=== PATIENT | male | born 2000 | race Caucasian/White ===

== ENCOUNTER 2019-10-31 10:46 | Emergency (ER) | payer OTHER, SELFPAY ==
[2019-10-31] VITALS (7 sets, daily range): BP systolic 140–165; BP diastolic 70–88; PULSE 63–100; RESP 14–26; TEMP 36.7; O2SAT 97–100
--- NOTE | ~2019-10-31 | XR_ITS ---
XR chest 2V DATE: 10/31/2019 11:04 INDICATION: Midsternal chest pain intermittent for 2 weeks TECHNIQUE: PA and lateral views COMPARISON: None FINDINGS: Normal heart size. No hilar or mediastinal enlargement. No pulmonary infiltrate or consolid ation, pleural effusion or pulmonary vascular congestion or pneumothorax. IMPRESSION: Negative chest Reviewed, dictated and finalized at location A. IMPRESSION: Negative chest
--- NOTE | 2019-10-31 10:51 | ECG_ITS ---
Measurements Intervals [place]ole Rate: 96 P: 23 MI: 138 QRS: 21 QRSD: 94 T: 25 QT: 357 QTc: 452 Interpretive Statements SINUS RHYTHM BASELINE ARTIFACT- III, V3 NORMAL ECG Electronically Signed On 10-31-2019 14:08:11 CDT by Jerzy Goddard D.O.
--- NOTE | 2019-10-31 10:59 | PC.NURSE ---
Pt to XRAY via stretcher.
[2019-10-31 11:02] LABS: Basophils Absolute Auto 0.1 K/mm3 (0.0-0.1); Basophils Percent Auto 0.9 % (0.2-1.2); Eosinophils Absolute Auto 0.3 K/mm3 (0-0.3); Eosinophils Percent Auto 3.2 % (0-4.4); Hematocrit 44.9 % (42.0-52.0); Hemoglobin 14.7 g/dL (14.0-18.0); Immature Granulocyte Absolute 0.07 K/mm3 (0.00-0.031); Immature Granulocyte Percent A 0.9 % (0-0.5); Lymphocytes Absolute Auto 2.07 K/mm3 (0.9-3.2); Lymphocytes Percent Auto 26.8 % (18.3-44.2); Mean Corpuscular HGB Conc 32.7 g/dl (32-36); Mean Corpuscular Hemoglobin 27.1 pg (26-34); Mean Corpuscular Volume 82.8 fl (80-100); Mean Platelet Volume 9.7 fl (7.4-10.4); Monocytes Absolute Auto 0.8 K/mm3 (0.1-0.6); Monocytes Percent Auto 10.9 % (2.6-8.5); Neutrophils Absolute Auto 4.4 K/mm3 (1.3-6.7); Neutrophils Percent Auto 57.3 % (45.5-73.1); Platelet Count Result 389 k/mm3 (150-375); Red Blood Count 5.42 M/mm3 (4.6-6.20); Red Cell Distribution Width 12.5 % (11.5-14.5); White Blood Count 7.7 K/mm3 (4.5-10.0)
[2019-10-31 11:13] LABS: Prothrombin Time 12.8 Seconds (11.1-14.7)
[2019-10-31] MEDS: ASPIRIN 81 MG CHEWABLE TABLET 324 MG PO (11:13)
[2019-10-31 11:14] LABS: Anion Gap 7 mmol/L (8-16); Blood Urea Nitrogen 10 mg/dL (9-20); Calcium 9.2 mg/dL (8.4-10.2); Carbon Dioxide 26 mmol/L (22-30); Chloride 107 mmol/L (98-107); Estimated CRCL calculation 153 ml/min; Estimated Glomerular Filt Rate > 60; Glucose 98 mg/dL (75-110); Partial Thromboplastin Time 27.2 SECONDS (22.3-36.8); Potassium 4.1 mmol/L (3.4-5.0); Sodium 140 mmol/L (137-145)
[2019-10-31 11:26] LABS: Troponin I < 0.012 ng/mL (0.000-0.034)
[2019-10-31 11:38] LABS: D Dimer 0.27 ug/mL (<0.48)
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
[2019-10-31] MEDS: KETOROLAC 30 MG/ML VIAL (*BKC) IV PUSH (11:44)
[2019-10-31 14:17] LABS: Troponin I < 0.012 ng/mL (0.000-0.034)
== END 2019-10-31 14:38 | disposition home or self-care (01) ==
PROVIDERS: Emergency Medicine Emergency Medical Services; Emergency Provider Emergency Medicine
DX: R07.9 Chest pain, unspecified (principal)
CPT/HCPCS: 36415; 71046; 80048; 84484; 85025; 85380; 85610; 85730; 93005; 96374; 99284; A9270; J1885

== ENCOUNTER 2023-08-11 16:22 | Emergency (ER) | payer OTHER, SELFPAY ==
--- NOTE | ~2023-08-11 | CT_ITS ---
EXAMINATION: CT facial bones wo con DATE: 08/11/2023 17:29 INDICATION: Head injury. TECHNIQUE: Computed tomography (CT) of the facial bones and maxillofacial region was performed withou t intravenous contrast. Automated exposure control and iterative reconstruction technique were employ ed. The dose-length product was 701.99 mGy-cm. COMPARISON: None. FINDINGS: The orbits are normal. There is leftward deviation of the nasal septum. No fracture. IMPRESSION: 1. No fracture. Reviewed, dictated and finalized at location E. IMPRESSION: 1. No fracture.
--- NOTE | ~2023-08-11 | CT_ITS ---
EXAMINATION: CT brain wo con DATE: 08/11/2023 17:29 INDICATION: Head injury. TECHNIQUE: Computed tomography (CT) of the head was performed without intravenous contrast. The mA wa s adjusted according to patient size. Iterative reconstruction technique was employed. The dose-lengt h product was 605.33 mGy-cm. COMPARISON: Head CT 11/11/2017 FINDINGS: There is no intracranial hemorrhage, acute infarction, or abnormal intracranial mass lesion . The ventricles are normal in size. The paranasal sinuses are clear. The mastoid air cells are parish l. IMPRESSION: 1. Normal brain. Reviewed, dictated and finalized at location E. IMPRESSION: 1. Normal brain.
--- NOTE | ~2023-08-11 | XR_ITS ---
EXAMINATION: XR knee RT 3V DATE: 08/11/2023 17:34 INDICATION: Right knee injury. TECHNIQUE: 3 views of right knee were obtained. COMPARISON: None. FINDINGS: Bone alignment is normal. No fracture. Joint spaces are normal. There is a small knee joint effusion. IMPRESSION: 1. Small right knee joint effusion. Reviewed, dictated and finalized at location E.
[2023-08-11 16:27] VITALS: BP 139/105; PULSE 95; RESP 16; TEMP 36.8; O2SAT 97
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
[2023-08-11 18:35] VITALS: BP 140/98; PULSE 80; RESP 20; O2SAT 98
== END 2023-08-11 18:36 | disposition home or self-care (01) ==
PROVIDERS: Emergency Provider Emergency Medicine; PCP Physician Assistant
DX: S00.211A Abrasion of right eyelid and periocular area, initial encounter (principal); S50.811A Abrasion of right forearm, initial encounter; S80.211A Abrasion, right knee, initial encounter; S30.811A Abrasion of abdominal wall, initial encounter; V86.06XA Driver of dirt bike or motor/cross bike injured in traffic accident, initial encounter
CPT/HCPCS: 70450; 70486; 73562; 99284

== ENCOUNTER 2023-08-16 10:33 | Outpatient (CLI) | payer OTHER, SELFPAY ==
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
== END 2023-08-16 10:34 ==
PROVIDERS: PCP Physician Assistant; Visit Provider Orthopaedic Surgery
DX: S89.91XA Unspecified injury of right lower leg, initial encounter (principal); X58.XXXA Exposure to other specified factors, initial encounter
CPT/HCPCS: 73721

== ENCOUNTER 2024-01-31 02:46 | Day surgery (SDC) | payer OTHER, SELFPAY ==
[2024-01-23 15:31] VITALS: BMI 44.3
--- NOTE | 2024-01-23 15:38 | PC.NURSE ---
Report to the Outpatient Waiting Room, entrance under the green pavilion located off [facility], at time _0600_ on date _[id number]_. Planned Procedure Time: _0730_.? Time changes happen often and if your time is changed the preop area will call you the afternoon before. - You and your visitor will be asked to self-screen and do not enter if you have any COVID symptoms. Please call surgeon if you need to reschedule. - A mask is optional within the hospital at this time. Patients may have clear liquids (water, carbonated beverages, clear teas, apple juice) until 3 hours prior to surgery with a maximum of 20 ounces. - No food from midnight until time of surgery and no smoking. This includes no chewing gum, candy or mints. Take only the following medications with a SIP of water on the morning of surgery: ____Inhaler if needed. DO NOT STOP ANY OF YOUR OTHER PRESCRIPTION MEDICATIONS PRIOR TO SURGERY EXCEPT THE FOLLOWING Medications to discontinue per physician ___None____ Please no make-up, nail icelandic, hairspray, perfume, deodorant, or body powder the day of surgery.? No jewelry (including any body piercings) or valuables the day of surgery, leave them at home.? Please take a shower or bath the night before, or the morning of, surgery with an antibacterial soap.? Wear comfortable, loose fitting clothing.? . - Jewelry must be removed prior to entering the operating room.? Rings and piercings that are not removed may be cut off. - The hospital will not accept responsibility for valuables.? - Please leave all valuables, including medications, at home the day of surgery. If you are going home after surgery, a licensed driver engineer must drive you home.? - NO public transportation without another adult if you receive anesthesia. - We recommend that an adult stay with you for 24 hours following discharge. - We also recommend that you do not drive, make important decision, drink alcoholic beverages, or take any drugs that were not prescribed by your health care provider for at least 24 hours after your discharge time. Follow any additional instructions given to you from your surgeon. Telephone instructions given to _Ramana_and asked if any additional questions and then verbalized understanding. Patient advised to call surgeon office or pre surgery nurse liaison [phone] if any additional questions.
[2024-01-31] VITALS (9 sets, daily range): BP systolic 126–154; BP diastolic 74–92; PULSE 69–93; RESP 12–18; TEMP 36.6; O2SAT 95–99
[2024-01-31] MEDS: ACETAMINOPHEN 500 MG TABLET 1000 MG PO (06:21)
[2024-01-31] MEDS: CELECOXIB 200 MG CAPSULE PO (06:21)
[2024-01-31] MEDS: LACTATED RINGERS 1,000 ML 30 ML IV CONT ×2 (06:53→10:25)
--- NOTE | 2024-01-31 07:21 | WPDHPUPDATE1 ---
History and Physical Update Update Date/Time: 01/31/24 07:21 History and Physical has been reviewed, including an updated exam of the patient. There are NO changes in the patient's condition. Risks, benefits, and alternatives have been discussed and questions answered. Patient agrees to proceed with procedure.
--- NOTE | 2024-01-31 07:24 | WPDANESEPPF ---
Anes - Initial Pre Proc Eval Procedure: Operation Date: 01/31/24 07:30 Proposed Procedures p Right Knee Arthroscopy, Anterior Cruciate Ligament Reconstruction - Carlyle Hurley MD Date/Time: 01/31/24 07:24 Surgeon: Carlyle Hurley MD Pre Op Diagnosis: lateral meniscus tear, ACL rupture right knee Patient Data Age: 23 Gender: M Height: 1.85 m Weight: 151.5 kg Last Vital Signs Temp 98 F 01/31/24 06:33 Pulse 83 01/31/24 06:33 Resp 18 01/31/24 06:33 BP 143/75 H 01/31/24 06:33 Pulse Ox 97 01/31/24 06:33 Allergies Allergy/AdvReac Type Severity Reaction Status Date / Time No Known Allergies Allergy Mild Verified 01/31/24 06:14 Home Medications ?Medication ?Instructions ?Recorded ?Confirmed ?Type chlorhexidine gluconate 4 % 1 applic topical ONCE #237 mL 01/13/24 01/31/24 Rx topical liquid (Hibiclens) albuterol sulfate 90 mcg/actuation 1 puff inhalation Q4H PRN 01/23/24 01/23/24 History aerosol inhaler shortness of breath or wheezing Patient hx anesthesia problems: none Family hx anesthesia problems: none Results Review: All pre-operative results and documents have been reviewed as part of the pre-operative evaluation. FOR[facility]LY [facility], [facility] Past Medical History Medical History Rupture of anterior cruciate ligament of right knee Surgical History Surgical History History of ankle surgery growth plate Family History Family History Unknown Hypertension COPD (chronic obstructive pulmonary disease) Heart disease Lung disease Arthritis Cerebrovascular accident High cholesterol Social History Social History Social History: caffeine use-coffee Smoking status: Never smoker Smokeless tobacco user: chewing tobacco Alcohol intake: current Drinks per week: 12 Substance use type: marijuana Occupation/Education: occupation 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 Informed Consent: The patient's anesthetic plan and its attendant risks and benefits were discussed with the patient/family/POA. Questions were solicited and answers provided to the satisfaction of the patient/family/POA.
[2024-01-31] MEDS: ceFAZolin 3 GM/D5W 100 ML 100 ML IVPB (07:34)
[2024-01-31] MEDS: BUPivacaine HCL 0.5% 10 ML AMP 30 ML INFILTRATE (08:19)
[2024-01-31] MEDS: KETOROLAC 30 MG/ML VIAL (*BKC) IV PUSH (09:56)
[2024-01-31] MEDS: fentaNYL CITRATE INJ (*CRX) 100 MCG/2 ML VIAL 25 MCG IV PUSH ×6 (10:35→11:05)
--- NOTE | 2024-01-31 10:48 | W.PM.PROC2 ---
Procedure Note - Detailed Date of Procedure 01/31/24 Pre-op Diagnosis lateral meniscus tear, ACL rupture right knee Post-op Diagnosis Same Procedure Performed RIGHT ACL RECONSTRUCTION WITH PARTIAL LATERAL MENISCECTOMY Surgeon Carlyle Hurley MD Anesthesia General Description of Procedure PATIENT WAS TAKEN TO THE OR. GENERAL ANESTHESIA WAS INDUCED. THE RIGHT KNEE WAS TAKEN THROUGH A RANGE OF MOTION AND A PIVOT SHIFT TEST WAS PREFORMED AND THIS WAS POSITIVE. A LACHMANS TEST AND ANTERIOR DRAWER TESTS WERE ALSO PREFORMED AND BOTH SHOWED LAXITY OF THE ACL. THE RIGHT LEG WAS PREPPED AND DRAPED STERILE. TROCARS WERE PLACED IN THE USUAL FASHION. CAMERA WAS INTRODUCED. THERE WAS MINIMAL CHONDROMALACIA TO THE PATELLA FEMORAL JOINT. THERE WAS A LOT OF SYNOVITIS IN THIS COMPARTMENT WELL. THE MEDIAL COMPARTMENT SHOWED MILD CHONDROMALACIA TO THE MED FEMORAL CONDYLE. THER WAS NO TEAR TO THE MEDIAL MENISCUS. NEXT THE ACL WAS IDENTIFIED AND FOUND TO BE COMPLETELY TORN. THE LATERAL MENISCUS WAS TORN AT THE POSTERIOR HORN AND ROOT. THE TEAR WAS RESECTED DOWN TO A SMOOTH BASE. THE LATERAL COMPARTMENT HAD NO CHONDROMALACIA. THE ACL REMNANTS WERE THEN THEN DEBRIDED UNTIL THE PCL WAS IDENTIFIED AND THE SUPERIOR LATERAL NOTCH WAS IDENTIFIED. A NOTCH PLASTY WAS PREFORMED UNTIL THE OVER THE TOP POSITION WAS SEEN. A MEDIAL INCISION WAS MADE MEDIAL TO THE TIBIAL TUBERCLE AND DISSECTION CONTINUED DOWN TO BONE. A TIBIAL ACL GUIDE WAS PLACE UP AGAINST THE PCL AND WAS SET AT 55 DEG POSITION. A GUIDE PIN WAS DRILLED THROUGH THE GUIDE EXITING JUST ANTERIOR TO THE PCL STUMP. A 10 MM TIBIAL TUNNEL WAS DRILLED. A #7 BACK WALL GUIDE WAS PLACED OVER THE GUIDE PIN AT THE 10 O'CLOCK POSITION ON THE FEMUR. A 10 MM FEMORAL TUNNEL WAS DRILLED TO 25 MM. AN ALLOGRAFT WAS ATTACHED TO AN ARTHREX TIGHT ROPE SYSTEM. THE ALLOGRAFT WAS PASSED THROUGH THE TIBIAL AND FEMORAL TUNNELS. THE TIGHT ROPE WAS THEN TIGHTENED AND THE ENDO BUTTON WAS SECURED OVER THE SUPERIOR LATERAL FEMORAL CORTEX. WITH THE KNEE AT 30 DEG OF FLEXION AND TENSION ON THE TIBIAL SIDE OF THE ALLOGRAFT, A 25 MM BY 10 MM TISSUE INTERFERENCE SCREW WAS PLACED IN THE TIBIAL TUNNEL OVER A GUIDE WIRE. THE SCREW HAD AN EXCELLENT BITE. THE KNEE WAS TAKEN THROUGH A RANGE OF MOTION AND THE ACL WAS VERY STABLE. NEXT AN INTERNAL BRACE SYSTEM WAS PLACED WITH THE KNEE IN FULL EXTENSION. THE IMPLANT HAD AN EXCELLENT BITE. UNDER DIRECT VISUALIZATION AN ANTERIOR DRAWER TEST WAS PREFORMED AND THE ACL WAS VERY STABLE WITH A GOOD END POINT. SYNOVECTOMY WAS PREFORMED IN THE PATELLO FEMORAL JOINT AND IN THE MEDIAL COMPARTMENT. THE PATELLA TRACKED WITHOUT TILT. THE INSTRUMENTS WERE REMOVED AFTER THOROUGH IRRIGATION OF THE KNEE JOINT. THE WOUNDS WERE WASHED. THE TROCAR WOUNDS WERE APPROXIMATED WITH 4-0 NYLON. THE TIBIA WOUND WAS APPROXIMATED WITH 0 VICRYL, 2-0 VICRYL AND 3-0 QUILL SUTURE. THE WOUNDS WERE WASHED. DERMABOND AND THEN A STERILE DRESSING WAS APPLIED. A BRACE WAS PLACED.PATIENT WAS EXTUBATED. Estimated Blood Loss 50 Complications No immediate complications Condition Stable Disposition PACU
[2024-01-31] MEDS: oxyCODONE HCL (*CRX) 5 MG TAB IR PO (11:42)
== END 2024-01-31 13:00 | disposition home or self-care (01) ==
PROVIDERS: PCP Physician Assistant; Visit Provider Orthopaedic Surgery
PROC: (CPT 29888; principal; 2024-01-31 07:30)
DX: S83.511A Sprain of anterior cruciate ligament of right knee, initial encounter (principal); M94.261 Chondromalacia, right knee; M65.861 Other synovitis and tenosynovitis, right lower leg; I11.9 Hypertensive heart disease without heart failure; J44.9 Chronic obstructive pulmonary disease, unspecified; E78.00 Pure hypercholesterolemia, unspecified; J98.4 Other disorders of lung; M19.90 Unspecified osteoarthritis, unspecified site; F17.220 Nicotine dependence, chewing tobacco, uncomplicated; V86.96XA Unspecified occupant of dirt bike or motor/cross bike injured in nontraffic accident, initial encounter; E66.01 Morbid (severe) obesity due to excess calories; Z68.41 Body mass index [BMI] 40.0-44.9, adult; Z79.51 Long term (current) use of inhaled steroids; Z98.890 Other specified postprocedural states; Z86.79 Personal history of other diseases of the circulatory system
CPT/HCPCS: 29888; 29881; A9270; C1713; J0690; J1100; J1885; J2003; J2250; J2405; J2704; J3010; J7120; L1830

== ENCOUNTER 2024-06-22 07:51 | Outpatient (CLI) | payer OTHER, SELFPAY ==
--- NOTE | ~2024-06-22 | MR_ITS ---
EXAMINATION: MR knee LT wo con DATE: 06/22/2024 08:26 INDICATION: Unspecified injury of the left lower leg TECHNIQUE: Magnetic resonance imaging (MRI) of the left knee was performed without intravenous contra st. Sequences included coronal PD-weighted FSE, coronal PD-weighted FS FSE, sagittal T2-weighted FSE , sagittal PD-weighted FS FSE and axial PD weighted fat saturated FSE. COMPARISON: None. FINDINGS: Medial compartment: Medial meniscus is normal. Articular cartilage is normal. Lateral compartment: Lateral meniscus is normal. Articular cartilage is normal. Patellofemoral compartment: Mild partial-thickness chondral fissuring at the inferior aspect of the lateral patellar facet. Troch lear cartilage is normal. Ligaments and tendons: Posterior cruciate ligament is normal. The anterior cruciate ligament demonstrates a normal angle rel ative to Blum[place]at line. The anteromedial bundle appears normal. There is prominent increased signal extending from proximal to distally along the posterolateral bundle of the ligament which could be d ue to mucoid degeneration or a partial tear. The medial collateral ligament and fibular collateral li gament complex are normal. The extensor mechanism is normal. The visualized medial and lateral hamstr ing tendons as well as the iliotibial band are normal. Fluid: Physiologic amount of fluid in the joint space. No loose osteochondral bodies identified. Osseous/other: Normal marrow signal. No fracture or pathologic marrow replacing process. IMPRESSION: 1. Band of prominent increased signal extending proximally to distally along the posterolateral bundl e of the anterior cruciate ligament suspicious for partial tear with differential including mucoid de generation. 2. Mild patellofemoral osteoarthritis with regions of moderate grade chondromalacia along the inferio r aspect of the lateral patellar facet. Reviewed, dictated and finalized at location A. IMPRESSION: 1. Band of prominent increased signal extending proximally to distally along th e posterolateral bundle of the anterior cruciate ligament suspicious for partia l tear with differential including mucoid degeneration. 2. Mild patellofemoral osteoarthritis with regions of moderate grade chondromal acia along the inferior aspect of the lateral patellar facet.
== END 2024-06-22 07:52 | disposition home or self-care (01) ==
LOC: MICIMG 07:51
PROVIDERS: PCP Physician Assistant; Visit Provider Orthopaedic Surgery
DX: S89.92XA Unspecified injury of left lower leg, initial encounter (principal); M17.12 Unilateral primary osteoarthritis, left knee; M22.42 Chondromalacia patellae, left knee; X58.XXXA Exposure to other specified factors, initial encounter
CPT/HCPCS: 73721

== ENCOUNTER 2024-08-05 11:07 | Emergency (ER) | payer OTHER, SELFPAY ==
--- NOTE | ~2024-08-05 | CT_ITS ---
CT brain wo con Ordering provider: Trish Lopez PA-C History: 23 years Male with . headache x 1 wk, occipital pain radiates to frontal lobe . Comparison: August 11, 2023 Technique: CT of the head without contrast. Radiation reduction technique utilized. The dose-length p roduct was 605.33 mGy-cm. FINDINGS: BRAIN PARENCHYMA AND CSF SPACES: No midline shift, mass effect or hemorrhage. The brain parenchyma a nd CSF spaces are otherwise normal. VISUALIZED PARANASAL SINUSES: Well aerated. MASTOIDS: Well aerated. BONES: The bones appear intact. SOFT TISSUES: Visualized nasopharynx is normal. Superficial soft tissues are normal. IMPRESSION: No acute intracranial findings. Reviewed, dictated and finalized at location A.
[2024-08-05 11:13] VITALS: BP 151/84; PULSE 84; RESP 16; TEMP 36.2; O2SAT 98
--- NOTE | 2024-08-05 12:38 | ED_ITS ---
HPI - Headache General Chief Complaint: Headache Stated Complaint: migraines x 1 week with N/V Time Seen by Provider: 08/05/24 11:31 Source: patient Mode of arrival: ambulatory Limitations: no limitations History of Present Illness HPI Narrative: This is a 23-year-old male that presents to the emergency department for headaches. Ongoing over the last week. Reports the pain as dull/achy. Intermittently a little more sharp. He has been taking ibuprofen as needed. No recent injuries. No previous history of migraines or headaches. Denies fevers, stiff neck, focal numbness or weakness. Related Data Home Medications ?Medication ?Instructions ?Recorded ?Confirmed ?Last Taken ?Type albuterol sulfate 90 mcg/actuation 1 puff inhalation Q4H PRN 01/23/24 07/23/24 Unknown History aerosol inhaler shortness of breath or wheezing Allergies Allergy/AdvReac Type Severity Reaction Status Date / Time No Known Allergies Allergy Mild Verified 08/05/24 11:15 Review of Systems Review of Systems: All systems reviewed & are unremarkable except as noted in HPI and below PMFSH Past Medical History Medical History Rupture of anterior cruciate ligament of right knee Surgical History Surgical History History of ankle surgery growth plate Family History Family History Unknown Hypertension COPD (chronic obstructive pulmonary disease) Heart disease Lung disease Arthritis Cerebrovascular accident High cholesterol Social History Social History Social History: caffeine use-coffee Smoking status: Never smoker Smokeless tobacco user: chewing tobacco Alcohol intake: current Drinks per week: 12 Substance use type: marijuana Living arrangements: with family Occupation/Education: occupation 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 HEAD: Normocephalic, atraumatic. EYES: PERRLA and EOMI. ENT: Nares clear, no rhinorrhea or epistaxis. Mucous membranes moist. Oropharynx without tonsillar hypertrophy exudate or other lesions. Bilateral TMs pearly farias non-bulging NECK: Supple. No adenopathy or masses. Normal ROM CHEST: Clear to auscultation. No respiratory distress. No wheezes rales or rhonchi HEART: Regular rate and rhythm. No murmur heard. Normal peripheral pulses. EXTREMITIES: Normal range of motion. No edema. Strength equal in bilateral upp er and lower extremities (5/5) SKIN: Warm, dry, no rash. NEURO: No focal deficits. Alert and oriented x3. Cranial nerves 2-12 grossly intact PSYCH: Normal mood and affect Course Course Emergency Course: Patient updated on his workup. Resting comfortably. Reports feeling much better Vital Signs Vital signs: Vital Signs Temperature 97.1 F L 08/05/24 11:13 Pulse Rate 84 08/05/24 11:13 Respiratory Rate 16 08/05/24 11:13 Blood Pressure 151/84 H 08/05/24 11:13 Pulse Oximetry 98 08/05/24 11:13 Oxygen Delivery Room Air 08/05/24 11:13 Temperature 97.1 F L 08/05/24 11:13 Pulse Rate 70 08/05/24 13:07 Respiratory Rate 15 08/05/24 13:07 Blood Pressure 129/86 08/05/24 13:07 Pulse Oximetry 98 08/05/24 13:07 Oxygen Delivery Room Air 08/05/24 11:13 MDM - Headache MDM Narrative Medical decision making narrative: Patient presents the emergency department for headaches ongoing over the last week. No previous history of migraines. He is afebrile and nontoxic appearing. His vitals are stable. CT brain without acute findings. Patient reports relief with migraine cocktail. He is to follow up with his primary provider for further evaluation. He was given warnings to return to the ER Differential Diagnosis Differential diagnosis: Likely migraine, tension headache, subarachnoid hemorrhage, headache and sinusitis Imaging Data Radiologist's impression: ITS Impressions Head CT 08/05/24 12:30 IMPRESSION: No acute intracranial findings. Critical Care Time Critical Care Time Critical Care Time: No Discharge Plan Discharge Clinical Impression: Headache Qualifiers: Headache type: unspecified Headache chronicity pattern: acute headache Intractability: not intractable Qualified Code(s): R51.9 - Headache, unspecified Patient Disposition: Home Condition: Improved Instructions: Acute Headache (ED) Additional Instructions: Return to the emergency department if you experience fever, vision changes, vomiting, weakness, numbness, or any other symptoms that are concerning to you. Rest. Remain well hydrated. [id number] pain medication as needed Follow up with your primary care doctor Patient Language: Uzbek Prescriptions: No Action albuterol sulfate 90 mcg/actuation HFA aerosol inhaler 1 puff inhalation Q4H PRN (Reason: shortness of breath or wheezing) Follow-up/Referrals: Racehlle,ALEJO Gresham [Primary Care Provider] -
[2024-08-05] MEDS: METOCLOPRAMIDE HCL INJ 10 MG/2 ML VIAL IV PUSH (13:00)
[2024-08-05] MEDS: diphenhydrAMINE HCl INJ 50 MG/ML VIAL 25 MG IV PUSH (13:00)
[2024-08-05] MEDS: ACETAMINOPHEN 500 MG TABLET 1000 MG PO (13:00)
[2024-08-05] MEDS: SODIUM CHLORIDE 0.9% IV 1,000 ML 999 ML IV CONT (13:01)
[2024-08-05 13:07] VITALS: BP 129/86; PULSE 70; RESP 15; O2SAT 98
[2024-08-05 15:17] VITALS: BP 124/77; PULSE 65; RESP 16; O2SAT 100
== END 2024-08-05 15:18 | disposition home or self-care (01) ==
PROVIDERS: Emergency Provider Physician Assistant; PCP Physician Assistant
DX: R51.9 Headache, unspecified (principal); F17.290 Nicotine dependence, other tobacco product, uncomplicated
CPT/HCPCS: 70450; 96361; 96374; 96375; 99284; A9270; J1200; J2765; J7030